=== PATIENT | female | born 1985 | race Caucasian/White ===

== ENCOUNTER 2017-05-28 15:45 | Day surgery (SDC) | payer BC ==
[2017-05-28 16:27] VITALS: BP 140/88; TEMP 99.4; BMI 40.5
[2017-05-28 17:07] LABS: #Eosinphils 0.3 thou/uL (0.0-0.7); #Lymphocytes 2.2 thou/uL (1.20-3.40); #Monocytes 0.9 thou/uL (0.11-0.59); #Neutrophils 9.3 thou/uL (1.40-6.50); %Basophils 0.3 % (0.0-1.0); %Eosinophils 2.2 % (0.0-10.0); %Lymphocytes 17.1 % (21.0-51.0); %Neutrophils 73.5 % (42.0-75.0); Hemoglobin 12.8 g/dL (12.0-16.0); Mean Corpuscular HGB CONC 34.2 g/dL (32.0-36.0); Mean Corpuscular Hemoglobin 30.5 pg (27.0-31.0); Mean Corpuscular Volume 89.2 fl (81.0-99.0); Mean Platelet Volume 8.5 fL (7.4-10.4); Platelet Count 161 thou/uL (130-400); RBC Distribution Width 12.7 % (11.5-14.5); Red Blood Cell (RBC) Count 4.21 mill/uL (4.20-5.40); White Blood Cell (WBC) Count 12.7 thou/uL (4.8-10.8)
[2017-05-28 17:10] LABS: Bilirubin Negative (Negative); Blood, Urine Negative (Negative); Clarity CLEAR (Clear); Glucose, Urine (Dipstick) Negative (Negative); Leukocyte Negative (Negative); Nitrite Negative (Negative); Protein, Urine (Dipstick) Negative (Neg-Trace); Urobilinogen 0.2 mg/dL (0.2-1.0)
[2017-05-28 17:35] LABS: ALT (SGPT) 15 U/L (8-55); AST (SGOT) 15 U/L (5-34); Albumin 3.3 g/dL (3.5-5.0); Alkaline Phosphatase 145 U/L (40-150); Anion Gap 11 mmol/L (10-20); BUN (Urea Nitrogen) 5 mg/dL (7.0-18.7); Bilirubin, Total 0.2 mg/dL (0.2-1.2); Calc. Creatinine Clearance 204 mL/min (70-130); Calcium 8.8 mg/dL (7.8-10.44); Carbon Dioxide 23 mmol/L (22-29); Chloride 107 mmol/L (98-107); Estimated GFR-MDRD Greater than 90; Globulin 2.7 g/dL (2.4-3.5); Glucose 121 mg/dL (70-105); Potassium 3.4 mmol/L (3.5-5.1); Sodium 138 mmol/L (136-145)
--- NOTE | 2017-05-28 21:19 | SS ---
DATE OF EVALUATION: 05/28/2017 REGULAR OB: Kedar Canales DO EVALUATING PHYSICIAN: Josse Sahu MD CHIEF COMPLAINT: Contractions, elevated blood pressure at home. HISTORY OF PRESENT ILLNESS: Ms. Albert is a 32-year-old white , AB 1, ectopic 1 with estimated d ate of confinement of 06/24/2017, now at 36 weeks who presents complaining of contractions since hannah y this morning and concerns after having taken her blood pressure at home. Her care has bee n with Dr. Canales and she is scheduled for a at 39 weeks due to a history of 2 previous cesa rean sections for failure to progress. She states that presently she has had no complications in her care. PAST MEDICAL HISTORY: ADHD. CURRENT MEDICATIONS: Include Vyvanse, Colace, melatonin, Pepcid, and vitamins. PAST SURGICAL HISTORY: x2 as above. ALLERGIES: HYDROCODONE. SOCIAL HISTORY: She denies tobacco, alcohol, or drug use. FAMILY HISTORY: Unremarkable. REVIEW OF SYSTEMS: She denies nausea, vomiting, fever, chills, vaginal bleeding, or ruptured membran es. PHYSICAL EXAMINATION: VITAL SIGNS: On admission, blood pressure 140/88, pulse 95, respirations 20, temperature 99.4 with O 2 saturation of 100% on room air. ABDOMEN: Soft, nontender and gravid. Sterile vaginal exam by the labor nurse shows the cervix to be closed and posterior. heart rate tracing is reassuring with only an occasional contraction seen. With oral hydration , she was noted to have no contractions at all. She is placed on her left side and blood pressure is repeated. Her most recent blood pressure is 116 /69. LABORATORY DATA: Laboratory values return CBC shows a white count of 12.7, hemoglobin and hematocrit of 12.8 and 37.6 and platelet count of 161,000. A cath UA returned showing no protein, no nitrites, and no leukocytes. Metabolic panel shows an AST of 15 and ALT of 15 and a total bilirubin of 0.2. Her BUN and creatinine are 5 and 0.67 respectively. ASSESSMENT: 1. A 36-week intrauterine . 2. History of 2 previous sections. 3. No evidence of active labor. 4. No evidence of preeclampsia. PLAN: At this time, the patient has been given complete labor precautions as well as preeclampsia pr ecautions and is told to return should she experience other symptoms. She voices understanding of he r discharge instructions and is sent home in good condition.
== END 2017-05-28 18:05 | disposition home or self-care (01) ==
LOC: L&D/OP 15:45
PROVIDERS: ATTEND Obstetrics & Gynecology
DX: O47.03 False labor before 37 completed weeks of gestation, third trimester (principal); O99.343 Other mental disorders complicating pregnancy, third trimester; F90.9 Attention-deficit hyperactivity disorder, unspecified type; Z79.899 Other long term (current) drug therapy; Z88.5 Allergy status to narcotic agent; Z91.018 Allergy to other foods; Z3A.36 36 weeks gestation of pregnancy
CPT/HCPCS: 36415; 80053; 81003; 85025; A4353

== ENCOUNTER 2017-06-05 15:46 | Inpatient (IN) | payer BC ==
--- NOTE | 2017-06-05 16:26 | PDOC.LDHP ---
Labor and Delivery H&P Chief complaint: other (Prior CS X 2 with last CS in 2012 s/p failed with noted dehisence of CS scar (Patient of Dr Canales).) HPI: 32 yo (CS X 2) SAB1 Ectopic 1 (MTX) now at 37 weeks 2 days, here for possible contractions. Last sex intercourse was 48 hours ago. No recent trauma, no VB, no LOF, no fevers. Good FM Current gestational age (weeks): 37 (2 days) Dating criteria: last menstrual period Grav: 5 Para: 2 ([id number]) Abnormal US findings: No Current medications: pre-gurpreet vitamins Previous surgical history: low tranverse CS (2 prior CS with last one noted to have scar dehiscence) Allergies/Adverse Reactions: Allergies Allergy/AdvReac Type Severity Reaction Status Date / Time hydrocodone Allergy Mild Emesis Verified 09/10/12 19:05 CILANTRO Allergy Severe Anaphylaxis Uncoded 10/24/12 16:41 MINT LEAVES Allergy Severe Anaphylaxis Uncoded 10/24/12 16:42 - Physical Exam Vital signs reviewed and normal: yes (BP 135/70) General: NAD Heart: RRR Lungs: CTAB Abdomen: gravid Extremeties: no edema FHT: category 1 [place] contractions every: only irritability, no distinct contraction pattern - Vaginal Exam cm dilated: 1 ((0.5 on exam)) Effacement: 25% Station: -2 - Assessment Threatened labor at early term, CS x 2...CX fingertip (annotation only allowed 1 cm in text). - Plan Plan: observation in L&D (Patient is 0.5cm on exam...we will observe in L&D for 2 hours., I have ordered IVFs for conservative care. No evidence true labor at this time. Follow for now.)
[2017-06-05] MEDS: Lactated Ringer's 1,000 ML IV SCH ×2 (16:40→17:53)
[2017-06-05] MEDS ORDERED: PROPOFOL 200 MG/20 ML VIAL ONE (16:45)
[2017-06-05] MEDS ORDERED: ePHEDrine/0.9% NaCl/PF SYRINGE 50 mg/10 ml ONE ×2 (16:45→20:30)
[2017-06-05 17:29] VITALS: BMI 40.5
--- NOTE | 2017-06-05 17:41 | PDOC.EVN ---
Event Note - Event Note Event Note: D/W Dr Canales at 1730: She is in route for repeat CS due to the patient's prior HX of scar dehisence and contractions. I have discussed this with the patient as well. I have ordered SCDs and preop ABX per protocol. Anesthesia aware. Awaiting labs/teams to arrive. No emergent need at this time.
[2017-06-05] MEDS ORDERED: CEFAZOLIN/Water 2 GM/20 ML SYRINGE SLOW IVP SCH (17:45)
[2017-06-05] MEDS ORDERED: Bicitra 30 ML UDCUP PO SCH (17:45)
[2017-06-05 18:44] LABS: Hemoglobin 13.5 g/dL (12.0-16.0); Mean Corpuscular HGB CONC 35.2 g/dL (32.0-36.0); Mean Corpuscular Hemoglobin 31.4 pg (27.0-31.0); Mean Corpuscular Volume 89.2 fl (81.0-99.0); Mean Platelet Volume 9.2 fL (7.4-10.4); Platelet Count 178 thou/uL (130-400); RBC Distribution Width 13.2 % (11.5-14.5); Red Blood Cell (RBC) Count 4.29 mill/uL (4.20-5.40); White Blood Cell (WBC) Count 13.5 thou/uL (4.8-10.8)
[2017-06-05] MEDS ORDERED: Bupivacaine 0.75% W/DEXTROSE 8.25% 2 ML AMP ONE (20:01)
[2017-06-05] MEDS ORDERED: Morphine PF 1 MG/ML SYR ONE (20:02)
[2017-06-05] MEDS ORDERED: Fentanyl 100 MCG/2 ML VIAL ONE ×2 (20:02→21:07)
[2017-06-05] MEDS ORDERED: Oxytocin 10 UNITS/ML VIAL ONE (20:03)
[2017-06-05] MEDS ORDERED: Lidocaine 1% (PF) 30 ML VIAL ONE (20:21)
[2017-06-05] MEDS ORDERED: Ropivacaine 0.2% 550 ML 750 ML NERVE BLCK SCH ×2 (20:30→21:00)
[2017-06-05] MEDS ORDERED: Glycopyrrolate 0.2 MG/ML 5 ML SYRINGE ONE (20:32)
[2017-06-05] MEDS ORDERED: Meperidine HCl/PF 25 MG/ML VIAL SLOW IVP PRN ×2 (20:47→20:49)
[2017-06-05] MEDS ORDERED: Ondansetron HCl/PF 4 MG/2 ML Vial IVP PRN ×2 (20:47→20:49)
[2017-06-05] MEDS ORDERED: L&D-Morphine 4 MG/ML VIAL SLOW IVP PRN ×2 (20:47→20:49)
[2017-06-05] MEDS ORDERED: Ondansetron PF 4 MG/2 ML Vial IVP PRN ×2 (20:49→21:02)
[2017-06-05] MEDS ORDERED: Naloxone HCl 0.4 mg/ml Vial IVP PRN ×4 (20:49→21:02)
[2017-06-05] MEDS ORDERED: Eucerin (Mineral Oil/Petrolatum,White) 30 gm Jar TOP PRN (20:49)
[2017-06-05] MEDS ORDERED: Ketorolac Tromethamine 30 MG/ML VIAL IVP PRN ×2 (20:49→21:02)
[2017-06-05] MEDS ORDERED: HYDROmorphone 2 MG/ML VIAL SLOW IVP PRN (20:49)
[2017-06-05] MEDS ORDERED: diphenhydrAMINE 50 MG/ML VIAL IVP PRN ×2 (20:49→21:02)
[2017-06-05] MEDS ORDERED: Naloxone HCl 0.4 mg/ml Vial IV PRN ×2 (20:49→21:02)
[2017-06-05] MEDS ORDERED: Promethazine HCl 25 MG SUPP PR PRN ×2 (20:49→21:02)
[2017-06-05] MEDS ORDERED: Promethazine HCl 25 MG/ML VIAL IM PRN ×2 (20:49→21:02)
[2017-06-05] MEDS ORDERED: Midazolam HCl 2 mg/2 ml Vial ONE (20:55)
[2017-06-05] MEDS ORDERED: Ketorolac Tromethamine 30 MG/ML VIAL IVP SCH ×2 (21:00)
[2017-06-05] MEDS ORDERED: Communication Order-Pharmacy FS SCH ×2 (21:00→21:15)
[2017-06-05] MEDS ORDERED: Hydrocerin (Eucerin) Cream 120 gm Jar TOP PRN (21:02)
[2017-06-05] MEDS ORDERED: PROPOFOL 20 ML ONE ×2 (21:05→21:13)
[2017-06-05] MEDS ORDERED: Bupivacaine 0.25% HCL 30 ML VIAL ONE (21:06)
--- NOTE | 2017-06-05 21:17 | PDOC.EVN ---
Event Note - Event Note Event Note: L&D @ 2114: CS Assist note: Called to assist Dr max for repeat CS. repeat CS (LTCS) performed by Dr Max with me as operator/assistant foreman. No complications noted. No uterine defects seen. On Q pump placed above the closed peritoneum (sub-fascial) at closure. Please see full op note by Dr Max. Baby vigorous at delivery.
--- NOTE | 2017-06-05 21:27 | PDOC.OPDEL ---
OB Operative/Delivery Note Delivery Dr/Surgeon: Parker Assist: Luis Alberto Pre-Delivery Diagnosis: active labor Procedure/Post Delivery Dx: repeat low transverse CS Weeks gestation: 37 Anesthesia: spinal - Findings A Sex: male Weight: 7 lb 10 oz - 1 min: 8 - 5 min: 8 - Additional Findings/Plan Placenta delivered: spontaneous findings: low transverse hysterotomy without extension, normal uterus, normal tubes Estimated blood loss: 750ml Post delivery plan: routine recovery
--- NOTE | 2017-06-05 22:35 | OP ---
DATE OF PROCEDURE: 06/05/2017 PREOPERATIVE DIAGNOSES: 1. Previous section x2. 2. Labor at 37 weeks. POSTOPERATIVE DIAGNOSIS: Status post repeat low-transverse section. SURGEON: Kedar Canales D.O. FOOD ORDER EXPEDITER: Costa Sahu M.D. ANESTHESIA: Spinal per Dr. Dee. ESTIMATED BLOOD LOSS: 750 mL. URINE OUTPUT: 400 mL. COMPLICATIONS: None. PROCEDURES PERFORMED: Repeat low-transverse section, placement of ON-Q catheter pumps. OPERATIVE FINDINGS: 1. Minimal adhesive disease. 2. Low transverse hysterotomy without extension. 3. Normal uterus, tubes, and ovaries bilaterally. 4. Vigorous male infant, 7 pounds 10 ounces to nursery with Apgars 8 and 8. PROCEDURE IN DETAIL: The patient was taken back to the OR with IV fluids running. Once she was in t he OR, spinal anesthesia was obtained and the patient was then placed in dorsal supine position with a left lateral tilt. Drake catheter was placed using sterile technique. SCDs were placed on lower e xtremities bilaterally. Two grams of Ancef were administered preop and the abdomen was prepped and d raped in normal fashion for section. A Pfannenstiel skin incision was made with the scalpel . The skin incision was carried down through the subcutaneous tissue to the fascia. Once the fascia was reached, it was incised in the midline and extended superolaterally using curved Dominguez scissors. Susan clamps were placed at the superior border of the fascia, which was sharply and bluntly dissec vera off the rectus abdominis muscles in both caudad and cephalad directions allowing adequate space f or delivery of the infant. The peritoneum was bluntly entered and stretched laterally. An Juanjose O retractor was placed into the peritoneal cavity for retraction, visualization and protection of the w ound. A bladder flap was created and the bladder was dissected away from the planned hysterotomy sit e. Hysterotomy was made with the scalpel. Hysterotomy was bluntly entered and stretched superolater ally. Amniotomy was performed with clear fluid noted. The infant was delivered through the incision with immediate cry. Nose and mouth were suctioned. The cord was doubly clamped and cut after delay ed cord clamping of approximately 30 seconds. The infant was [facility] Cord blood was collected. The placenta was delivered. The uterus was exteriorized, massa ged and cleaned with a clean dry sponge and return to the abdominal cavity. Hysterotomy was reapprox imated with Monocryl suture in a running locked fashion. Once hysterotomy was closed, a small area o f bleeding was noted in the left corner. This area was oversewn with a [id number] stitch of Mon ocryl suture. Once hemostasis was assured, the hysterotomy and pericolic gutters were irrigated and suctioned dried. Hysterotomy was inspected again and noted to be hemostatic. Counts were correct. The Juanjose O retractor was removed from the abdominal cavity. The peritoneal layer was reapproximate d with chromic suture. The fascia and muscle bellies were inspected with no areas of bleeding noted. Two ON-Q catheters were placed under direct visualization through the skin, subcutaneous tissue and fascia and were directed to the corners of the incision between the fascia and rectus muscles. Next , the fascia was closed with PDS suture in a running fashion, tied separately in the midline. The bedolla bcutaneous tissue was then irrigated and dried. It was reapproximated with plain gut suture. The sk in was then closed with 4-0 Monocryl. The ON-Q catheters were primed with bupivacaine 0.25%. Dressi ngs were applied to the catheter insertion sites as well as the incision. The patient's uterus was f irm. The patient tolerated the procedure well and she was transferred to recovery room in good condi tion.
[2017-06-05] MEDS ORDERED: LR / Pitocin 40 units/1000 ml 1,000 ML ONE (22:50)
[2017-06-06] MEDS ORDERED: Acetaminophen/Codeine 30-300mg Tablet PO PRN (00:27)
[2017-06-06] MEDS ORDERED: Promethazine HCl 25 MG/ML VIAL IM PRN ×2 (00:27→01:57)
[2017-06-06] MEDS ORDERED: Lanolin Ointment 7 GM TUBE TOP PRN (00:27)
[2017-06-06] MEDS ORDERED: Bisacodyl 10 MG SUPP PR PRN (00:27)
[2017-06-06] MEDS ORDERED: Measles/Mumps/Rubella 10 MCG/0.5 ML VIAL SC ONE (00:27)
[2017-06-06] MEDS ORDERED: Simethicone Chewable 80 MG TAB PO PRN (00:27)
[2017-06-06] MEDS ORDERED: diphenhydrAMINE 25 MG CAP PO PRN (00:27)
[2017-06-06] MEDS ORDERED: Ondansetron PF 4 MG/2 ML Vial IVP PRN ×2 (00:27→01:57)
[2017-06-06] MEDS ORDERED: Lactated Ringer's 1,000 ML IV SCH (00:27)
[2017-06-06] MEDS ORDERED: Meperidine HCl/PF 25 MG/ML VIAL IM PRN (00:27)
[2017-06-06] MEDS ORDERED: Zolpidem Tartrate 5 MG TAB PO PRN (00:27)
[2017-06-06] MEDS ORDERED: LR w/ Pitocin 40 units/1000 ML BAG IV SCH (00:27)
[2017-06-06] MEDS ORDERED: Ibuprofen 800 MG TAB PO SCH ×2 (00:45→06:00)
[2017-06-06] MEDS ORDERED: diphenhydrAMINE 50 MG/ML VIAL IVP PRN (01:55)
[2017-06-06] MEDS ORDERED: Naloxone HCl 0.4 mg/ml Vial IVP PRN ×2 (01:56→01:57)
[2017-06-06] MEDS ORDERED: Naloxone HCl 0.4 mg/ml Vial IV PRN (01:56)
[2017-06-06] MEDS ORDERED: Promethazine HCl 25 MG SUPP PR PRN (01:57)
[2017-06-06] MEDS: Ketorolac Tromethamine 30 MG/ML VIAL IVP PRN ×3 (02:08→17:21)
[2017-06-06 05:35] LABS: Hemoglobin 12.2 g/dL (12.0-16.0); Mean Corpuscular HGB CONC 34.4 g/dL (32.0-36.0); Mean Platelet Volume 8.6 fL (7.4-10.4); Platelet Count 158 thou/uL (130-400); RBC Distribution Width 13.1 % (11.5-14.5); Red Blood Cell (RBC) Count 3.93 mill/uL (4.20-5.40); White Blood Cell (WBC) Count 12.2 thou/uL (4.8-10.8)
[2017-06-06] MEDS ORDERED: Ondansetron ODT 4 MG TAB PO PRN (06:22)
[2017-06-06] MEDS ORDERED: Sodium Chloride 0.9% 10 ML ONE (08:18)
--- NOTE | 2017-06-06 08:53 | PDOC.PP ---
Post Progress Note Post Day #: 1 Subjective: melva CLD, pain controlled w toradol PO intake tolerated: yes Flatus: yes Ambulation: yes Vital Signs (12 hours) Temp Pulse Resp BP Pulse Ox 06/06/17 08:00 98.8 F 106 H 16 122/71 96 06/06/17 04:30 98.5 F 91 16 06/06/17 02:10 97.8 F 93 16 128/74 97 06/06/17 01:10 97.8 F 95 18 123/71 06/06/17 00:15 98.0 F 92 18 124/58 L 96 Weight Weight 236 lb - Physical Examination General: NAD Respiratory: non-labored breathing Abdominal: no distention Fundus firm & at: below umb Extremities: negative homans (B) Skin: CS incision dry & intact, no rash Neurological: no gross focal deficits Psychiatric: A&Ox3, normal affect Result Diagrams: 06/06/17 05:21 (1) Delivery by section at 37-39 weeks of gestation due to labor Code(s): O75.82 - ONSET LABOR 37-39 WEEKS, W DEL BY (PLANNED) SECTION Status: Acute - Assessment/Plan POD1 doing well, advance diet today as tolerated, pain mgmt.
[2017-06-06] MEDS: Prenatal Vitamin 1 TAB PO SCH (09:08)
[2017-06-06] MEDS: Docusate Calcium (SURFAK) 240 MG CAP PO SCH ×2 (09:08→21:06)
[2017-06-06 09:56] LABS: HBSAg Index 0.21 S/CO (0-0.99); Hep B Surf Ag Non-Reactive S/CO (NonReactive); Syphilis Antibody Nonreactive (Nonreactive); Syphilis Antibody Index 0.02 S/CO (<1.00 Non-Reactive)
[2017-06-06] MEDS: Ferrous Sulfate 325 MG TAB PO SCH ×2 (10:31→17:22)
[2017-06-06] MEDS: Acetaminophen/Codeine 30-300mg Tablet PO PRN (22:40)
[2017-06-07] MEDS: Acetaminophen/Codeine 30-300mg Tablet PO PRN ×5 (02:34→19:25)
[2017-06-07] MEDS: Ibuprofen 800 MG TAB PO SCH ×3 (05:41→21:35)
--- NOTE | 2017-06-07 08:37 | PDOC.PP ---
Post Progress Note Post Day #: 2 Subjective: mild discomfort at incision OK w oral pain meds, nursing well, considering DC today PO intake tolerated: yes Flatus: yes Ambulation: yes Vital Signs (12 hours) Temp Pulse Resp BP 06/07/17 04:45 98.6 F 92 20 06/07/17 00:30 98.8 F 89 18 125/58 L Weight Weight 236 lb - Physical Examination Respiratory: non-labored breathing Abdominal: no distention, appropriately TTP Extremities: negative homans (B) Skin: no rash Neurological: no gross focal deficits Psychiatric: A&Ox3, normal affect Result Diagrams: 06/06/17 05:21 Additional Labs: Post Labs Hep Bs Antigen Non-Reactive S/CO (NonReactive) 06/06/17 08:52 (1) Delivery by section at 37-39 weeks of gestation due to labor Code(s): O75.82 - ONSET LABOR 37-39 WEEKS, W DEL BY (PLANNED) SECTION Status: Acute - Assessment/Plan POD2 doing well, meeting post op goals, considering DC if baby DC today.
[2017-06-07] MEDS: Ferrous Sulfate 325 MG TAB PO SCH ×2 (09:05→16:06)
[2017-06-07] MEDS: Docusate Calcium (SURFAK) 240 MG CAP PO SCH ×2 (09:26→21:35)
[2017-06-07] MEDS: Prenatal Vitamin 1 TAB PO SCH (09:26)
[2017-06-07 22:58] VITALS: TEMP 99
[2017-06-08] MEDS: Acetaminophen/Codeine 30-300mg Tablet PO PRN ×4 (00:38→12:00)
[2017-06-08] MEDS: Ibuprofen 800 MG TAB PO SCH ×2 (06:15→12:58)
[2017-06-08 07:39] VITALS: BP 140/80
[2017-06-08] MEDS: Ferrous Sulfate 325 MG TAB PO SCH (07:43)
--- NOTE | 2017-06-08 08:13 | PDOC.PP ---
Post Progress Note Post Day #: 3 Subjective: POD 3 doing well, notices more pain w OnQ turned down to 1 so believes it is really helping. Breakthrough pain controlled w T3. Plan for DC today. PO intake tolerated: yes Flatus: yes Ambulation: yes Vital Signs (12 hours) Temp Pulse Resp BP 06/08/17 07:20 99.0 F 95 18 140/80 Weight Weight 236 lb - Physical Examination General: NAD Respiratory: non-labored breathing Abdominal: no distention, appropriately TTP Extremities: negative homans (B) Skin: CS incision dry & intact, no rash Neurological: no gross focal deficits Psychiatric: A&Ox3, normal affect Result Diagrams: 06/06/17 05:21 Additional Labs: Post Labs Hep Bs Antigen Non-Reactive S/CO (NonReactive) 06/06/17 08:52 (1) Delivery by section at 37-39 weeks of gestation due to labor Code(s): O75.82 - ONSET LABOR 37-39 WEEKS, W DEL BY (PLANNED) SECTION Status: Acute - Assessment/Plan POD3, mild range BP noted, no PIH sx otherwise. Has incision check and BP check planned for one week. Instructions for DC of OnQ discussed.
[2017-06-08] MEDS: Docusate Calcium (SURFAK) 240 MG CAP PO SCH (08:36)
[2017-06-08] MEDS: Prenatal Vitamin 1 TAB PO SCH (08:36)
--- NOTE | 2017-06-09 17:08 | PQF ---
ELYSE DEY MONSE PAUL DO [id number] CLINICAL DOCUMENTATION CLARIFICATION FORM: POST DISCHARGE Addendum to original discharge summary date: ____ Late entry note date: __ DATE: 06/09/17 ATTN: Please exercise your independent, professional judgment in responding to the clarification form. Clinical indicators are provided on the bottom of this form for your review Please check appropriate box(s): BMI > 40 with associated diagnosis of: (check one) [ ] Morbid (Severe) Obesity [ ] Due to excess calories [ ] with Alveolar Hypoventilation (Pickwickian syndrome) [ ] Overweight [ ] Obesity [ ] Other diagnosis [ ] Unable to determine In addition, please specify: Present on Admission (POA): [ ] Yes [ ] No [ ] Unable to Determine For continuity of documentation, please document condition throughout progress notes and discharge summary. Thank You. BMI < 19 Under weight 19 - 24.9 Healthy 25.0 - 29.9 Slightly Overweight 30.0 - 34.9 Obese 35.0 - 39.9 Severely Obese 40.0 and Over Morbidly Obese CLINICAL INDICATORS - SIGNS / SYMPTOMS / LABS BMI of: _40____ Weight gain RISK FACTORS MTDD
== END 2017-06-08 13:20 | disposition home or self-care (01) | DRG 766 ==
LOC: L&D/OP 15:46 → L&D 17:57 → 3SW 06-06 00:18
PROVIDERS: ADMIT Obstetrics & Gynecology; ATTEND Obstetrics & Gynecology
PROC: 10D00Z1 Extraction of Products of Conception, Low, Open Approach (ICD-10-PCS; principal; 2017-06-05)
DX: O34.211 Maternal care for low transverse scar from previous cesarean delivery (principal); Z37.0 Single live birth; Z3A.37 37 weeks gestation of pregnancy
CPT/HCPCS: 36415; 51702; 85027; 86780; 87340; 99285; A4306; J1885; J2001; J2250; J2274; J2590; J2704; J2795; J3010; J3490; Q0162; S0020